=== PATIENT | male | born 1995 | race Caucasian/White ===

== ENCOUNTER 2017-02-14 22:31 | Emergency (ER) | payer OTHER ==
[2017-02-14 22:37] VITALS: TEMP 98.2
[2017-02-14] MEDS ORDERED: ORPHENADRINE 30 MG/ML 2 ML VIAL IM STA (22:45)
[2017-02-14] MEDS ORDERED: KETOROLAC 60 MG/2 ML VIAL IM STA (22:45)
--- NOTE | 2017-02-14 23:18 | XR ---
EXAM: XR Lumbar Spine, 2 or 3 Views CLINICAL HISTORY: Reason: Pain TECHNIQUE: Frontal and lateral views of the lumbar spine. COMPARISON: No relevant prior studies available. FINDINGS: Vertebrae: Unremarkable. No acute fracture. Normal alignment. Disc spaces: No acute findings. No significant narrowing. Soft tissues: Unremarkable. IMPRESSION: No acute osseous abnormality of the lumbar spine.
--- NOTE | 2017-02-14 23:21 | XR ---
EXAM: XR Thoracic Spine, 3 Views CLINICAL HISTORY: Reason: Pain TECHNIQUE: Frontal, lateral and swimmer's views of the thoracic spine. COMPARISON: No relevant prior studies available. FINDINGS: Vertebrae: Unremarkable. No acute fracture. Normal alignment. Disc spaces: No acute findings. No significant narrowing. Soft tissues: Unremarkable. IMPRESSION: No acute osseous abnormality of the thoracic spine.
--- NOTE | 2017-02-14 23:38 | ED ---
Back Pain HPI - General Chief Complaint: Back Pain/Injury Stated Complaint: Back Pain Time Seen by Provider: 02/14/17 22:39 Source: patient Limitations: no limitations - History of Present Illness Initial Comments: 21-year-old male presents emergency Department chief complaint of back pain after jumping over a trashcan. Patient reports that when he jumped over a trashcan he felt a shooting pain go across the middle of his back. Patient reports that he has worsening pain with movements. Patient states that he has full range of motion in his legs. He denies any saddle anesthesias or loss of bowel or bladder control. - Related Data Previous Rx's Medication Instructions Recorded Cyclobenzaprine [Flexeril] 10 mg PO TID #15 tab 02/14/17 traMADol HCl [Ultram] 50 mg PO Q6H PRN #12 tab 02/14/17 Allergies Allergy/AdvReac Type Severity Reaction Status Date / Time No Known Allergies Allergy Verified 02/14/17 22:55 Review of Systems ROS Statement: Those systems with pertinent positive or pertinent negative responses have been documented in the HPI. ROS Other: All systems not noted in ROS Statement are negative. Past Medical History Past Medical History: No Reported History History of Any Multi-Drug Resistant Organisms: None Reported Past Surgical History: No Surgical Hx Reported Past Psychological History: No Psychological Hx Reported Smoking Status: Former smoker Past Alcohol Use History: None Reported Past Drug Use History: None Reported General Exam - General Exam Comments Initial Comments: Well-appearing 21-year-old male. No acute distress. Limitations: no limitations General appearance: alert, in no apparent distress Head exam: Present: atraumatic, normocephalic, normal inspection Eye exam: Present: normal appearance, PERRL, EOMI. Absent: scleral icterus, conjunctival injection, periorbital swelling ENT exam: Present: normal exam, mucous membranes moist Neck exam: Present: normal inspection. Absent: tenderness, meningismus, lymphadenopathy Respiratory exam: Present: normal lung sounds bilaterally. Absent: respiratory distress, wheezes, rales, rhonchi, stridor Cardiovascular Exam: Present: regular rate, normal rhythm, normal heart sounds. Absent: systolic murmur, diastolic murmur, rubs, gallop, clicks GI/Abdominal exam: Present: soft, normal bowel sounds. Absent: distended, tenderness, guarding, rebound, rigid Extremities exam: Present: normal inspection, full ROM, normal capillary refill. Absent: tenderness, pedal edema, joint swelling, calf tenderness Back exam: Present: normal inspection, full ROM, tenderness (Thoracic and upper lumbar tenderness.) Neurological exam: Present: alert, oriented X3, CN II-XII intact Psychiatric exam: Present: normal affect, normal mood Skin exam: Present: warm, dry, intact, normal color. Absent: rash Course Vital Signs 02/14/17 22:35 Temperature 98.2 F Pulse Rate 83 Respiratory 16 Rate Blood Pressure 128/75 O2 Sat by Pulse 99 Oximetry Medical Decision Making - Medical Decision Making 21-year-old male presents emergency Department chief complaint of back pain after jumping over a trashcan. Patient reports that when he jumped over a trashcan he felt a shooting pain go across the middle of his back. Patient reports that he has worsening pain with movements. Patient states that he has full range of motion in his legs. He denies any saddle anesthesias or loss of bowel or bladder control. Patient received lumbar and thoracic spinal x-rays. Negative for any acute process. Patient was given IM Toradol and Norflex. Patient reports that he is feeling better after the pain medications. Patient states that he will try Motrin Tylenol. Patient advised on return parameters. Patient will be discharged with a prescription for Norflex and Ultram. - Radiology Data Radiology results: report reviewed Lumbar and thoracic spine x-rays reviewed and negative for any acute fracture or dislocation. Noticed spinal listhesis or spondylolysis. Disposition Clinical Impression: Back pain Disposition: HOME SELF-CARE Condition: Good Instructions: Acute Low Back Pain (ED) Additional Instructions: Patient advised to apply heat and ice to the lower back. Patient advised to take medications including muscle relaxers and Motrin as prescribed. Return to the emergency department if any alarming signs or symptoms occur including numbness or tingling down the legs or loss of bowel or bladder control. Prescriptions: Cyclobenzaprine [Flexeril] 10 mg PO TID #15 tab traMADol HCl [Ultram] 50 mg PO Q6H PRN #12 tab PRN Reason: Pain Referrals: None,Stated [Primary Care Provider] - 1-2 days Isabell Douglas MD [STAFF PHYSICIAN] - 1-2 days Time of Disposition: 23:36
[2017-02-14 23:55] VITALS: BP 117/51; PULSE 70; RESP 14
== END 2017-02-14 23:54 | disposition home or self-care (01) ==
LOC: EC 22:31
DX: M54.9 Dorsalgia, unspecified (principal); Z87.891 Personal history of nicotine dependence; X50.1XXA Overexertion from prolonged static or awkward postures, initial encounter; Y93.39 Activity, other involving climbing, rappelling and jumping off
CPT/HCPCS: 72070; 72100; 99283; 96372 ×2; J2360; J1885

== ENCOUNTER 2023-04-17 09:58 | Emergency (ER) | payer OTHER ==
[2023-04-17] MEDS ORDERED: ONDANSETRON 4 MG/2 ML VIAL IVP STA (10:21)
--- NOTE | 2023-04-17 10:28 | ED ---
Abdominal Pain HPI - General Chief Complaint: Abdominal Pain Stated Complaint: loss of appetite Time Seen by Provider: 04/17/23 10:04 Source: patient Mode of arrival: ambulatory Limitations: no limitations - History of Present Illness Initial Comments: The patient is a 27-year-old gentleman with a history of depression but is otherwise healthy presents emergency room for abdominal pain and decreased appetite. The patient states that he has not felt like eating for about a week. He has some mild lower abdominal pain. He states that he has had intermittent nausea and occasional vomiting over the last week. He states that usually he eats an excessive amount of food and has not felt like eating anything. Patient was started on depression medication about 2-3 weeks ago. He was also started on Chantix recently He states that over the weekend he became very depressed and had some suicidal ideation. He spoke with his therapist and after speaking with him he felt much better. He is no longer having any thoughts of hurting himself and states the depression has significantly improved. He denies any homicidal ideation. The patient did stop his depression medication (Buspar?) . He stopped the Chantix this weekend after 3 days abuse as well. Today because he was concerned that this is causing his decreased appetite. The patient does state he has had watery diarrhea over the last 4-5 days as well. He states it is very green and mucousy and thought he saw a red in the diarrhea today. He denies any recent travel or sick contacts. He denies any recent antibiotics. The patient denies any history C. diff. He denies any cough, congestion or fevers. She denies any dysuria, hematuria or urinary frequency. -: week(s) (1) Location: [facility], [facility] Quality: dull - Related Data Previous Rx's Medication Instructions Recorded Dicyclomine [Bentyl] 20 mg PO TID #30 tablet 04/17/23 Ondansetron Odt [Zofran Odt] 4 mg PO Q8HR PRN #10 tab 04/17/23 Allergies Allergy/AdvReac Type Severity Reaction Status Date / Time No Known Allergies Allergy Verified 04/17/23 11:31 Review of Systems ROS Statement: Those systems with pertinent positive or pertinent negative responses have been documented in the HPI. ROS Other: All systems not noted in ROS Statement are negative. Past Medical History Past Medical History: No Reported History History of Any Multi-Drug Resistant Organisms: None Reported Past Surgical History: No Surgical Hx Reported Past Psychological History: Anxiety, Depression Smoking Status: Current some day smoker, Former smoker Past Alcohol Use History: None Reported Past Drug Use History: None Reported General Exam - General Exam Comments Initial Comments: Mild pain with palpation over the right lower abdomen and left lower abdomen. No rigidity. No peritoneal signs, no rebound tenderness. Soft benign abdomen. Limitations: no limitations General appearance: alert Head exam: Present: atraumatic, normocephalic Eye exam: Present: normal appearance, PERRL, EOMI Respiratory exam: Present: normal lung sounds bilaterally Cardiovascular Exam: Present: tachycardia GI/Abdominal exam: Present: soft, tenderness (Right lower quadrant and left lower quadrant), other (No rigidity, no rebound tenderness. No peritoneal signs) Extremities exam: Present: full ROM Back exam: Present: full ROM Neurological exam: Present: alert, altered, oriented X3 Psychiatric exam: Present: normal affect Skin exam: Present: warm, dry Course Vital Signs 04/17/23 04/17/23 04/17/23 10:00 11:43 12:37 Temperature 98.4 F 98.2 F 98.3 F Pulse Rate 105 H 74 68 Respiratory 20 18 18 Rate Blood Pressure 129/82 128/73 O2 Sat by Pulse 98 100 99 Oximetry - Reevaluation(s) Time: 11:55 (Patient is resting currently medicine. Was given IV fluids and Zofran emergency room. Has no significant pain at this time. I discussed lab and imaging results with the patient. Patient has mild colitis seen on the computed tomography scan. No elevated WBCs or fever. I spoke with attending physician Dr. Lemus regarding management. We will do symptomatic management at this time and forgo antibiotic treatment. Patient has no risk factors for C. diff.) Time: 12:49 (The RN spoke with behavior health nurse and patient does not req uire evaluation emergency room if they will not change his current antidepressants. He will need to have this done as an inpatient by psychiatrist. He was given multiple resources for outpatient follow-up and his are destructive process with one of them. again patient is adamant he denies any suicidal or homicidal ideation. He states the depression and suicidal thoughts of resolved after speaking with him. He feels comfortable with this plan to follow up as an outpatient. ) Medical Decision Making - Medical Decision Making Was pt. sent in by a medical professional or institution (DIANNE Diaz, SALES AND RETAIL MANAGEMENT RECRUITER, urgent care, hospital, or [facility]...) When possible be specific @ -Patient was sent in by PCP Did you speak to anyone other than the patient for history (EMS, parent, family, police, friend...)? What history was obtained from this source @ -[No] Did you review nursing and triage notes (agree or disagree)? Why? @ -[I reviewed and agree with nursing and triage notes] Were old charts reviewed (outside hosp., previous admission, EMS record, old EKG, old radiological studies, urgent care reports/EKG's, [facility] records)? Report findings @ -Yes old charts were reviewed Differential Diagnosis (chest pain, altered mental status, abdominal pain women, abdominal pain men, vaginal bleeding, weakness, fever, dyspnea, syncope, headache, dizziness, GI bleed, back pain, seizure, CVA, palpatations, mental health, musculoskeletal)? @ -Appendicitis, diverticulitis, colitis, gastrointestinal disease, medication adverse event EKG interpreted by me (3pts min.). @ -[As above] X-rays interpreted by me (1pt min.). @ -[None done] CT interpreted by me (1pt min.). @ CT shows no obvious objection or mass however radiology report is pending for confirmation of acute changes US interpreted by me (1pt. min.). @ -[None done] What testing was considered but not performed or refused? (CT, X-rays, U/S, labs)? Why? @ -[None] What meds were considered but not given or refused? Why? @ Antibiotics. Patient is afebrile with no elevated white blood cell count. I spoke with attending physician Dr. Choudhary on medications. At this time we will manage this without antibiotics and symptomatic management. Did you discuss the management of the patient with other professionals (professionals i.e. DIANNE Diaz, SALES AND RETAIL MANAGEMENT RECRUITER, lab, RT, psych nurse, aids social worker, doctor of pharmacy, teacher, nuclear security officer, director of casework services)? Give summary @patient with attending physician ED doctor Mariah Was smoking cessation discussed for >3mins.? @ -[No] Was critical care preformed (if so, how long)? @ -[No] Were there social determinants of health that impacted care today? How? (Homelessness, low income, unemployed, alcoholism, drug addiction, transportation, low edu. Level, literacy, decrease access to med. care, prison, rehab)? @ smoking cessation and follow up with outpatient psychiatry referrals Was there de-escalation of care discussed even if they declined (Discuss DNR or withdrawal of care, Hospice)? DNR status @ -[No] What co-morbidities impacted this encounter? (DM, HTN, Smoking, COPD, CAD, Cancer, CVA, ARF, Chemo, Hep., AIDS, mental health diagnosis, sleep apnea, morbid obesity)? @ - smoking, depression Was patient admitted / discharged? Hospital course, mention meds given and route, prescriptions, significant lab abnormalities, going to OR and other pertinent info. @ - discharged home with outpatient follow up Undiagnosed new problem with uncertain prognosis? @ Colitis Drug Therapy requiring intensive monitoring for toxicity (Heparin, Nitro, Insulin, Cardizem)? @ -[No] Were any procedures done? @ -[No] Diagnosis/symptom? @ -[Colitis] Acute, or Chronic, or Acute on Chronic? @ -acute Uncomplicated (without systemic symptoms) or Complicated (systemic symptoms)? @ -[default] Side effects of treatment? @ -[No] Exacerbation, Progression, or Severe Exacerbation? @ -[No] Poses a threat to life or bodily function? How? (Chest pain, [place], [place], pneumonia, PE, COPD, DKA, ARF, appy, cholecystitis, CVA, Diverticulitis, Homicidal, Suicidal, threat to staff... and all critical care pts) @ -[No] - Lab Data Result diagrams: 04/17/23 10:25 04/17/23 10:25 Lab Results 04/17/23 04/17/23 04/17/23 Range/Units 10:25 10:25 10:25 WBC 6.1 (3.8-10.6) k/uL RBC 5.41 (4.30-5.90) m/uL Hgb 16.3 (13.0-17.5) gm/dL Hct 47.8 (39.0-53.0) % MCV 88.4 (80.0-100.0) fL MCH 30.2 (25.0-35.0) pg MCHC 34.2 (31.0-37.0) g/dL RDW 12.8 (11.5-15.5) % Plt Count 272 (150-450) k/uL MPV 7.8 Neutrophils % 65 % Lymphocytes % 22 % Monocytes % 7 % Eosinophils % 3 % Basophils % 0 % Neutrophils # 4.0 (1.3-7.7) k/uL Lymphocytes # 1.3 (1.0-4.8) k/uL Monocytes # 0.4 (0-1.0) k/uL Eosinophils # 0.2 (0-0.7) k/uL Basophils # 0.0 (0-0.2) k/uL Sodium 139 (137-145) mmol/L Potassium 3.7 (3.5-5.1) mmol/L Chloride 105 (98-107) mmol/L Carbon Dioxide 25 (22-30) mmol/L Anion Gap 9 mmol/L BUN 10 (9-20) mg/dL Creatinine 0.71 (0.66-1.25) mg/dL Est GFR (CKD-EPI)AfAm >90 (>60 ml/min/1.73 sqM) Est GFR (CKD-EPI)NonAf >90 (>60 ml/min/1.73 sqM) Glucose 105 H (74-99) mg/dL Calcium 9.3 (8.4-10.2) mg/dL Total Bilirubin 0.9 (0.2-1.3) mg/dL AST 40 (17-59) U/L ALT 41 (4-49) U/L Alkaline Phosphatase 86 (38-126) U/L Total Protein 7.3 (6.3-8.2) g/dL Albumin 4.4 (3.5-5.0) g/dL Lipase 37 (23-300) U/L Urine Color Light Yellow Urine Appearance Clear (Clear) Urine pH 7.0 (5.0-8.0) Ur Specific [place] >1.050 H (1.001-1.035) Urine Protein Negative (Negative) Urine Glucose (UA) Negative (Negative) Urine Ketones 2+ H (Negative) Urine Blood Negative (Negative) Urine Nitrite Negative (Negative) Urine Bilirubin Negative (Negative) Urine Urobilinogen <2.0 (<2.0) mg/dL Ur Leukocyte Esterase Negative (Negative) - Radiology Data Radiology results: pending, report reviewed, image reviewed Disposition Clinical Impression: Inflammatory bowel disease, Colitis Disposition: HOME SELF-CARE Condition: Good Instructions (If sedation given, give patient instructions): Varenicline (By mouth), Irritable Bowel Syndrome (ED), Acute Diarrhea (ED) Additional Instructions: Following plan I increase hydration and water intake. Return if you develop any fevers or worsening abdominal pain. Follow-up with psychiatric services provided in the emergency room today. seek immediate emergent medical help if you develop any worsening depression or suicidal ideation. Prescriptions: Dicyclomine [Bentyl] 20 mg PO TID #30 tablet Ondansetron Odt [Zofran Odt] 4 mg PO Q8HR PRN #10 tab PRN Reason: Nausea Is patient prescribed a controlled substance at d/c from ED?: No Referrals: Kaden Hackett [Primary Care Provider] - 1-2 days Krissy Bonner MD [STAFF PHYSICIAN] - 1-2 days Time of Disposition: 12:47
[2023-04-17] MEDS ORDERED: SODIUM CHLORIDE 0.9% 1,000 ML IV ONE (10:34)
[2023-04-17 10:41] LABS: Basophils % (A) 0 %; Eosinophils # (A) 0.2 k/uL (0-0.7); Eosinophils % (A) 3 %; HCT 47.8 % (39.0-53.0); HGB 16.3 gm/dL (13.0-17.5); Lymphocytes # (A) 1.3 k/uL (1.0-4.8); Lymphocytes % (A) 22 %; MCH 30.2 pg (25.0-35.0); MCHC 34.2 g/dL (31.0-37.0); MCV 88.4 fL (80.0-100.0); Mean Platelet Volume 7.8; Monocytes # (A) 0.4 k/uL (0-1.0); Monocytes % (A) 7 %; Neutrophils % (A) 65 %; Platelet Count 272 k/uL (150-450); RBC 5.41 m/uL (4.30-5.90); RDW 12.8 % (11.5-15.5); WBC 6.1 k/uL (3.8-10.6)
--- NOTE | 2023-04-17 10:54 | CT ---
EXAMINATION TYPE: CT abdomen pelvis w con DATE OF EXAM: 04/17/2023 COMPARISON: None HISTORY: loss of appetite CT DLP: 1108.1 mGycm CONTRAST: CT scan of the abdomen and pelvis is performed without Oral Contrast and with IV Contrast, patient in jected with 100 mL of Isovue 300. FINDINGS: LUNG BASES-: No visible nodule. No infiltrate. 3.5 x 2.9 cm cystic structure adjacent to the right h eart border is partially imaged and may reflect a pericardial cyst. LIVER/GB: No calcified gallstones. No space occupying hepatic lesion. Biliary tree is of normal ca liber. PANCREAS: No inflammation. No distinct mass. SPLEEN: No splenic enlargement. No lesion seen. ADRENALS: No nodule. No thickening. KIDNEYS/BLADDER: No hydronephrosis. No nephrolithiasis. No distinct renal mass. Urinary bladder g rossly unremarkable. BOWEL: Normal appendix. There is mild diffuse colonic wall thickening is seen extending from the rect um to the cecum. Findings could be on the basis of inflammatory bowel disease such as ulcerative coli tis versus infectious colitis. Correlate clinically. The small bowel is of normal caliber. No evidenc e for free air or abscess. GENITAL ORGANS: No gross abnormality. LYMPH NODES: No greater than 1cm abdominal or pelvic lymph nodes are appreciated. AORTA: No significant abnormality. OSSEOUS STRUCTURES: No significant abnormality is seen. OTHER: No significant additional abnormality is seen. IMPRESSION: 1. Pancreas colitis with differential diagnostic possibilities including inflammatory bowel disease a s well as infectious colitis. Correlate clinically. 2. Probable pericardial cyst.
[2023-04-17 11:20] LABS: ALT 41 U/L (4-49); AST 40 U/L (17-59); African American GFR (CKD) >90 (>60 ml/min/1.73 sqM); Albumin 4.4 g/dL (3.5-5.0); Alkaline Phosphatase 86 U/L (38-126); Anion Gap 9 mmol/L; Blood Urea Nitrogen 10 mg/dL (9-20); Calcium 9.3 mg/dL (8.4-10.2); Carbon Dioxide 25 mmol/L (22-30); Chloride 105 mmol/L (98-107); Glucose 105 mg/dL (74-99); Lipase 37 U/L (23-300); Non-African American GFR(CKD) >90 (>60 ml/min/1.73 sqM); Potassium 3.7 mmol/L (3.5-5.1); Sodium 139 mmol/L (137-145); Total Bilirubin 0.9 mg/dL (0.2-1.3); Total Protein 7.3 g/dL (6.3-8.2)
[2023-04-17 11:44] VITALS: RESP 18
[2023-04-17 12:34] LABS: Appearance,Urine Clear (Clear); Bilirubin,Urine Negative (Negative); Blood,Urine Negative (Negative); Color,Urine Light Yellow; Glucose,Urine (UA) Negative (Negative); Ketones,Urine 2+ (Negative); Leukocyte Esterase,Urine Negative (Negative); Nitrite,Urine Negative (Negative); Protein,Urine Negative (Negative); Urobilinogen,Urine <2.0 mg/dL (<2.0)
[2023-04-17 12:37] VITALS: BP 128/73; PULSE 68; TEMP 98.3
[2023-04-17 12:37] LABS: Specific Gravity,Urine >1.050 (1.001-1.035)
== END 2023-04-17 12:58 | disposition home or self-care (01) ==
LOC: EC 09:58
DX: K52.9 Noninfective gastroenteritis and colitis, unspecified (principal); F17.200 Nicotine dependence, unspecified, uncomplicated; Z86.59 Personal history of other mental and behavioral disorders
CPT/HCPCS: 36415; 80053; 83690; 85025; 81003; 74177; 99285; 96374; 96361; J2405; Q9967